=== PATIENT | female | born 1970 | race American Indian/Alaskan Native ===

== ENCOUNTER 2016-09-29 22:37 | Emergency (ER) | payer MEDICAID ==
[2016-09-30 01:05] VITALS: BP 122/88
[2016-09-30 02:03] LABS: Urine Drugs of Abuse Note Disclamer
[2016-09-30 02:34] LABS: Bacteria,Urine 1+ /HPF (Negative); Bilirubin,Urine NEG (Negative); Blood,Urine NEG (Negative); Ketones,Urine NEG (Negative); Leukocyte Esterase,Urine NEG (Negative); Mucus,Urine FEW /HPF; Nitrite,Urine NEG (Negative)
== END 2016-09-30 03:54 | disposition left against medical advice (07) ==
LOC: ED 22:37
DX: Z53.21 Procedure and treatment not carried out due to patient leaving prior to being seen by health care provider (principal)
CPT/HCPCS: 80307; 81001; 81025

== ENCOUNTER 2021-04-26 19:41 | Observation (INO) | payer MEDICAID, OTHER ==
[2021-04-26] MEDS ORDERED: ASPIRIN 81 MG TAB CHEW PO ONE (20:54)
--- NOTE | 2021-04-26 20:57 | Event Note ---
ED Screening Note ED Screening Note: MID STERNAL SHARP CP RAD LEFT SHOULDER (DULL) NO N/V; DIAPHORESIS; FEVER/CHILLS; ABD PAIN; BACK PAIN; DYSURIA; VAG DC PAIN NOT LIKE HER GERD ALSO CO RLE PAIN AND TOE NUMBNESS FOR 3 DAYS PMH GERD RX PPI PSH HYSTERECTOMY CSEC G STONES MOM DEC HF DAD DEC KIDNEY FAILURE NO CIG/ETOH/DRUGS This initial assessment/diagnostic orders/clinical plan/treatment(s) is/are subject to change based on patients health status, clinical progression and re- assessment by fellow clinical providers in the ED. Further treatment and workup at subsequent clinical providers discretion. Patient/guardian urged not to elope from the ED as their condition may be serious if not clinically assessed and managed. Initial orders include: RO ACS/PE/DVT/URI
[2021-04-26 21:20] LABS: Basophils # (Auto) 0.1 K/mm3 (0.0-0.1); Basophils % (Auto) 0.6 % (0.0-1.8); Eosinophils # (Auto) 0.1 K/mm3 (0.0-0.4); Eosinophils % (Auto) 0.8 % (0.0-4.3); Hemoglobin 13.2 gm/dl (10.1-14.3); Lymphocytes # (Auto) 3.9 K/mm3 (1.2-5.4); Lymphocytes % (Auto) 36.4 % (13.4-35.0); Mean Corpuscular HGB Conc 35 % (30-34); Mean Corpuscular Volume 93 fl (79-97); Monocytes # (Auto) 0.5 K/mm3 (0.0-0.8); Monocytes % (Auto) 4.9 % (0.0-7.3); Platelet Count 213 K/mm3 (140-440); Red Blood Count 4.07 M/mm3 (3.65-5.03); Red Cell Distribution Width 14.1 % (13.2-15.2)
[2021-04-26 21:31] LABS: INR 0.78 (0.87-1.13)
[2021-04-26 21:32] LABS: Partial Thromboplastin Time 28.5 Sec. (24.2-36.6)
[2021-04-26 21:33] LABS: Alanine Aminotransferase 12 units/L (7-56); Albumin 4.3 g/dL (3.9-5); Blood Urea Nitrogen 7 mg/dL (7-17); Calcium 9.9 mg/dL (8.4-10.2); Hemolysis Index 25
--- NOTE | 2021-04-26 21:47 | Emergency Department Report ---
HPI - General Chief Complaint: Chest Pain Time Seen by Provider: 04/26/21 20:54 - HPI HPI: Room 44 The patient is a 51-year-old female present with a chief complaint of chest pain. Patient states for 1 week she has had constant left-sided chest pain has been sharp in nature. Patient denies shortness of breath, nausea/vomiting or diaphoresis with her pain. Patient states for the past 3 days she has had pain behind her right calf and numbness in the toes of her right foot. The patient denies trauma preceding her right lower extremity pain. Patient denies history of fever or cough. The patient states she has not received any vaccinations for COVID-19. The patient currently gives her chest pain a score of 2/10 and now states it is dull in nature. Patient states she never had a stress test or cardiac catheterization ED Past Medical Hx - Past Medical History Previous Medical History?: Yes Hx GERD: Yes Hx Psychiatric Treatment: Yes (anxiety) - Surgical History Past Surgical History?: Yes Additional Surgical History: hysterectomy 2013 - Family History Family history: no significant - Social History Smoking Status: Never Smoker Substance Use Type: None (Denies illicit drug) - Medications Home Medications: Home Medications Medication Instructions Recorded Confirmed Last Taken Type Fluconazole (Nf) [Diflucan] 150 mg PO ONCE #1 tablet 01/05/15 Unknown Rx Ibuprofen [Motrin] 600 mg PO Q8H PRN #40 tablet 01/05/15 Unknown Rx traMADoL [Ultram] 50 mg PO Q6HR PRN #20 tablet 01/05/15 Unknown Rx ED Review of Systems ROS: Stated complaint: CHEST PAIN X1 WEEK, LEG PAIN AND TINGLING IN TOES Other details as noted in HPI Constitutional: denies: diaphoresis, fever Eyes: denies: eye pain ENT: denies: throat pain Respiratory: denies: cough, shortness of breath Cardiovascular: chest pain Endocrine: no symptoms reported Gastrointestinal: denies: nausea, vomiting Genitourinary: denies: dysuria Musculoskeletal: myalgia Neurological: paresthesias Physical Exam - Physical Exam Vital Signs: Vital Signs 04/26/21 20:31 Temperature 99.4 F Pulse Rate 82 Respiratory 18 Rate Blood Pressure 165/90 O2 Sat by Pulse 99 Oximetry Physical Exam: GENERAL: The patient is well-developed well-nourished female sitting in chair not appearing to be in acute distress HEENT: Normocephalic. Atraumatic. Extraocular motions are intact. Patient has moist mucous membranes. NECK: Supple. Trachea midline CHEST/LUNGS: Clear to auscultation. There is no respiratory distress noted. HEART/CARDIOVASCULAR: Regular. There is no tachycardia. There is no gallop rub or murmur. 2+ right DP ABDOMEN: Abdomen is soft, nontender. Patient has normal bowel sounds. There is no abdominal distention. SKIN: There is no rash. There is no edema. There is no diaphoresis. NEURO: The patient is awake, alert, and oriented. The patient is cooperative. The patient has no focal neurologic deficits. The patient has normal speech. GCS 15 MUSCULOSKELETAL: There is tenderness of the right calf. No cords palpated. T here is no evidence of acute injury. ED Course Vital Signs 04/26/21 20:31 Temperature 99.4 F Pulse Rate 82 Respiratory 18 Rate Blood Pressure 165/90 O2 Sat by Pulse 99 Oximetry ED Medical Decision Making - Lab Data Result diagrams: 04/26/21 20:57 04/26/21 20:57 Laboratory Tests 04/26/21 04/26/21 04/26/21 20:57 20:57 20:57 WBC 10.7 RBC 4.07 Hgb 13.2 Hct 38.0 MCV 93 MCH 32 MCHC 35 H RDW 14.1 Plt Count 213 Lymph % (Auto) 36.4 H [place] % (Auto) 4.9 Eos % (Auto) 0.8 Baso % (Auto) 0.6 Lymph # (Auto) 3.9 [place] # (Auto) 0.5 Eos # (Auto) 0.1 Baso # (Auto) 0.1 Seg Neutrophils % 57.3 Seg Neutrophils # 6.1 PT 11.5 L INR 0.78 L APTT 28.5 D-Dimer Sodium 137 Potassium 3.6 Chloride 101.4 Carbon Dioxide 23 Anion Gap 16 BUN 7 Creatinine 0.6 Estimated GFR > 60 BUN/Creatinine Ratio 12 Glucose 106 H Calcium 9.9 Total Bilirubin 0.20 AST 14 ALT 12 Alkaline Phosphatase 80 Troponin T < 0.010 Total Protein 8.1 Albumin 4.3 Albumin/Globulin Ratio 1.1 04/26/21 20:57 WBC RBC Hgb Hct MCV MCH MCHC RDW Plt Count Lymph % (Auto) [place] % (Auto) Eos % (Auto) Baso % (Auto) Lymph # (Auto) [place] # (Auto) Eos # (Auto) Baso # (Auto) Seg Neutrophils % Seg Neutrophils # PT INR APTT D-Dimer 181.22 Sodium Potassium Chloride Carbon Dioxide Anion Gap BUN Creatinine Estimated GFR BUN/Creatinine Ratio Glucose Calcium Total Bilirubin AST ALT Alkaline Phosphatase Troponin T Total Protein Albumin Albumin/Globulin Ratio - EKG Data -: EKG Interpreted by Me EKG shows normal: sinus rhythm Rate: normal - EKG Data When compared to previous EKG there are: previous EKG unavailable Interpretation: nonspecific ST-T wave magno (T wave inversions in leads V2, V3) - Radiology Data Radiology results: report reviewed (Chest x-ray, right lower extremity Doppler), image reviewed (Chest x-ray, right lower extremity Doppler) interpreted by me: Chest x-ray-no definite focal infiltrates, no pneumothorax [address] [address] Vascular Lab Report Signed Patient: MARLENE TIPTON MR#: [id number] 1 : 1970 Acct:[id number] Age/Sex: 51 / F ADM Date: 04/26/21 Loc: ED Attending Dr: Ordering Physician: TAYLOR ADKINS MD Date of Service: 04/26/21 Procedure(s): VL venous duplex LE RT Accession Number(s): [id number] cc: TAYLOR ADKINS MD DUPLEX DOPPLER LOWER EXTREMITY VEINS, RIGHT INDICATION / CLINICAL INFORMATION: Pain. TECHNIQUE: Duplex doppler imaging was performed through the veins of the right lower extremity using venous compression and other maneuvers. COMPARISON: None available. FINDINGS: RIGHT COMMON FEMORAL VEIN: Negative. R IGHT FEMORAL VEIN: Negative. RIGHT POPLITEAL VEIN: Negative. RIGHT CALF VEINS: Negative. ADDITIONAL FINDINGS: None. IMPRESSION: 1. No sonographic evidence for DVT in the right lower extremity. Signer Name: Tayo Barrett MD Signed: 04/26/2021 10:30 PM Workstation Name: [id number] Transcribed By: TL Dictated By: Tayo Barrett MD Electronically Authenticated By: Tayo Barrett MD Signed Date/Time: 04/26/212229 DD/ 28 TD/TT: Print Cancel [address] [address] XRay Report Signed Patient: MARLENE TIPTON MR#: [id number] 1 : 1970 Acct:[id number] Age/Sex: 51 / F ADM Date: 04/26/21 Loc: ED Attending Dr: Ordering Physician: RADHA DIGGS Date of Service: 04/26/21 Procedure(s): XR chest routine 2V Accession Number(s): [id number] cc: RADHA DIGGS Fluoro Time In Minutes: CHEST 2 VIEWS INDICATION / CLINICAL INFORMATION: Chest Pain STUDY TIME: 2108 COMPARISON: None currently available. FINDINGS: SUPPORT DEVICES: None. HEART / MEDIASTINUM: No significant abnormality. LUNGS / PLEURA: No significant acute pulmonary or pleural abnormality. No pneumothorax. ADDITIONAL FINDINGS: No significant additional findings. Signer Name: Anish Moore MD Signed: 04/26/2021 10:01 PM Workstation Name: [id number] Transcribed By: GJ Dictated By: Anish Moore MD Electronically Authenticated By: Anish oMore MD Signed Date/Time: 04/26/212200 DD/ 00 TD/TT: Print Cancel - Differential Diagnosis ACS, PE, pericarditis, GERD Critical care attestation.: If time is entered above; I have spent that time in minutes in the direct care of this critically ill patient, excluding procedure time. ED Disposition Clinical Impression: Chest pain Disposition: ADMITTED INPATIENT Is pt being admited?: Yes Does the pt Need Aspirin: Yes Condition: Fair Instructions: Nonspecific Chest Pain, Adult Referrals: PRIMARY CARE, [Primary Care Provider] - 3-5 Days Time of Disposition: 22:39 (Hospitalist called (Ayla Urrutia)) Heart Score - HEART Score History: Moderately suspicious EKG: Non-specific Age: 45-65 Risk factors: 1-2 risk factors Troponin: < normal limit HEART Score: 4 - EKG Read Time Time EKG Completed: 22:20 EKG Read Time: 22:22
[2021-04-26 22:02] LABS: BUN/Creatinine Ratio 12
--- NOTE | 2021-04-26 22:06 | XRay Report ---
CHEST 2 VIEWS INDICATION / CLINICAL INFORMATION: Chest Pain STUDY TIME: 2108 COMPARISON: None currently available. FINDINGS: SUPPORT DEVICES: None. HEART / MEDIASTINUM: No significant abnormality. LUNGS / PLEURA: No significant acute pulmonary or pleural abnormality. No pneumothorax. ADDITIONAL FINDINGS: No significant additional findings. Signer Name: Anish Moore MD Signed: 04/26/2021 10:01 PM Workstation Name: [id number]
[2021-04-26] MEDS ORDERED: fentaNYL 100 MCG/2 ML INJ IM ONE (22:15)
--- NOTE | 2021-04-26 22:34 | Vascular Lab Report ---
DUPLEX DOPPLER LOWER EXTREMITY VEINS, RIGHT INDICATION / CLINICAL INFORMATION: Pain. TECHNIQUE: Duplex doppler imaging was performed through the veins of the right lower extremity using venous comp ression and other maneuvers. COMPARISON: None available. FINDINGS: RIGHT COMMON FEMORAL VEIN: Negative. RIGHT FEMORAL VEIN: Negative. RIGHT POPLITEAL VEIN: Negative. RIGHT CALF VEINS: Negative. ADDITIONAL FINDINGS: None. IMPRESSION: 1. No sonographic evidence for DVT in the right lower extremity. Signer Name: Tayo Barrett MD Signed: 04/26/2021 10:30 PM Workstation Name: [id number]
[2021-04-26] MEDS: fentaNYL 100 MCG/2 ML INJ IV ONE ×2 (22:41→22:44)
[2021-04-26] MEDS: ONDANSETRON 4 MG/2 ML INJ IV ONE ×2 (22:41→22:44)
[2021-04-26] MEDS ORDERED: MORPHINE 2 MG/1 ML INJ IV PRN (22:45)
[2021-04-26] MEDS ORDERED: ONDANSETRON 4 MG/2 ML INJ IV PRN (22:45)
[2021-04-26] MEDS ORDERED: MORPHINE 4 MG/1 ML INJ IV PRN (22:45)
[2021-04-26] MEDS ORDERED: ACETAMINOPHEN 325 MG TAB PO PRN (22:45)
[2021-04-26] MEDS ORDERED: NITROGLYCERIN 0.4 MG TAB SUBL SL PRN (22:45)
[2021-04-26 22:47] LABS: Bilirubin,Urine NEG (Negative); Blood,Urine NEG (Negative); Color,Urine Yellow (Yellow); Protein,Urine <15 mg/dL mg/dL (Negative); Urobilinogen,Urine < 2.0 mg/dL (<2.0)
[2021-04-26] MEDS ORDERED: LORazepam 2 MG/ML VIAL IV PRN (22:55)
--- NOTE | 2021-04-27 00:22 | History and Physical Report ---
History of Present Illness Date of examination: 04/26/21 Date of admission: 04/26/2021 Chief complaint: chest pain, right calf pain History of present illness: 51-year-old -[place] female with history of hypertension, GERD, and anxiety who presents [facility] ED with complaints of chest pain and right calf pain. Patient reports constant 5/10 sharp left-sided chest pain with radiation to abdomen x1 week. States that she initially thought her GERD was acting up since she had been off meds for approximately 2 months, so she resumed PPI for 2 weeks with minimal relief. Denies nausea, vomiting, diaphoresis, palpitations or shortness of breath. Additionally she complains of right calf pain and numbness to right foot x3 days. Denies any recent fall, injury/trauma to lower extremity. Reports that she did not receive any vaccination for COVID-19. Review of medical record shows patient was seen in ED with complaints of right foot pain in 2015. Patient states she was told that her pain was due to arthritis and was given pain meds to treat. Denies fever, chills, cough, hemoptysis, loss of smell and taste, illicit drug use, or recent sick contacts Past History Past Medical History: GERD, hypertension, other (anxiety ) Past Surgical History: hysterectomy (2013) Social history: lives with family (Children and boyfriend), full code. denies: smoking, alcohol abuse, prescription drug abuse, IV drug use Family history: CAD (Mother), hypertension Medications and Allergies Allergies Allergy/AdvReac Type Severity Reaction Status Date / Time doxycycline Allergy Unknown Verified 04/26/21 20:39 Home Medications Medication Instructions Recorded Confirmed Last Taken Type Fluconazole (Nf) [Diflucan] 150 mg PO ONCE #1 tablet 01/05/15 Unknown Rx Ibuprofen [Motrin] 600 mg PO Q8H PRN #40 tablet 01/05/15 Unknown Rx traMADoL [Ultram] 50 mg PO Q6HR PRN #20 tablet 01/05/15 Unknown Rx Active Meds: Active Medications Acetaminophen (Acetaminophen 325 Mg Tab) 650 mg PO Q6H PRN PRN Reason: Pain, Mild (1-3) Aspirin (Aspirin Ec 325 Mg Tab) 325 mg PO QDAY NELLY Atorvastatin Calcium (Atorvastatin 40 Mg Tab) 40 mg PO QHS NELLY Heparin Sodium (Porcine) (Heparin 5,000 Unit/1 Ml Vial) 5,000 unit SUB-Q Q12HR NELLY Lorazepam (Lorazepam 2 Mg/Ml Vial) 0.5 mg IV Q8H PRN PRN Reason: Anxiety Morphine Sulfate (Morphine 4 Mg/1 Ml Inj) 2 mg IV Q5MIN PRN PRN Reason: Chest Pain unrelieved by NTG Morphine Sulfate (Morphine 2 Mg/1 Ml Inj) 2 mg IV Q4H PRN PRN Reason: Pain, Moderate (4-6) Nitroglycerin (Nitroglycerin 0.4 Mg Tab Subl) 0.4 mg SL Q5M PRN PRN Reason: Chest Pain Ondansetron HCl (Ondansetron 4 Mg/2 Ml Inj) 4 mg IV Q6H PRN PRN Reason: Nausea And Vomiting Pantoprazole Sodium (Pantoprazole 40 Mg Inj) 40 mg IV QDAY [facility] Sodium Chloride (Sodium Chloride 0.9% 10 Ml Flush Syringe) 10 ml IV PRN PRN PRN Reason: LINE FLUSH Sodium Chloride (Sodium Chloride 0.9% 10 Ml Flush Syringe) 10 ml IV BID NELLY Review of Systems All systems: negative (As noted in HPI) Exam - Physical Exam Narrative exam: Physical exam General appearance: Present: No acute distress, alert and oriented 3, adult female - EENT Eyes: Present: PERRL, EOM intact ENT: hearing intact, normal dentition - Neck Neck: Present: supple, normal ROM - Respiratory Respiratory effort: Non-labored Respiratory: Clear throughout - Cardiovascular Heart rate: 78 (bpm) Rhythm: Sinus nonspecific T wave abnormalities Heart Sounds: Present: S1 & S2. Absent: rub, click - Extremities Extremities: no ischemia, pulses intact, - Peripheral Assessment Peripheral Pulses: within normal limits - Abdominal General gastrointestinal: Obese, soft, non-tender, normal bowel sounds - Integumentary Integumentary: Present: warm, dry - Musculoskeletal Musculoskeletal: Able to move all extremities -Neurological Neurological: CN II-XII intact - Psychiatric Psychiatric: cooperative - Constitutional Vitals: Temp Pulse Resp BP Pulse Ox 99.4 F 82 18 165/90 99 04/26/21 20:31 04/26/21 20:31 04/26/21 20:31 04/26/21 20:31 04/26/21 20:31 HEART Score - HEART Score EKG: Non-specific Age: 45-65 Risk factors: 1-2 risk factors Troponin: WBC 10.7 K/mm3 (4.5-11.0) 04/26/21 20:57 RBC 4.07 M/mm3 (3.65-5.03) 04/26/21 20:57 Hgb 13.2 gm/dl (10.1-14.3) 04/26/21 20:57 Hct 38.0 % (30.3-42.9) 04/26/21 20:57 MCV 93 fl (79-97) 04/26/21 20:57 MCH 32 pg (28-32) 04/26/21 20:57 MCHC 35 % (30-34) H 04/26/21 20:57 RDW 14.1 % (13.2-15.2) 04/26/21 20:57 Plt Count 213 K/mm3 (140-440) 04/26/21 20:57 Lymph % (Auto) 36.4 % (13.4-35.0) H 04/26/21 20:57 [place] % (Auto) 4.9 % (0.0-7.3) 04/26/21 20:57 Eos % (Auto) 0.8 % (0.0-4.3) 04/26/21 20:57 Baso % (Auto) 0.6 % (0.0-1.8) 04/26/21 20:57 Lymph # (Auto) 3.9 K/mm3 (1.2-5.4) 04/26/21 20:57 [place] # (Auto) 0.5 K/mm3 (0.0-0.8) 04/26/21 20:57 Eos # (Auto) 0.1 K/mm3 (0.0-0.4) 04/26/21 20:57 Baso # (Auto) 0.1 K/mm3 (0.0-0.1) 04/26/21 20:57 Seg Neutrophils % 57.3 % (40.0-70.0) 04/26/21 20:57 Seg Neutrophils # 6.1 K/mm3 (1.8-7.7) 04/26/21 20:57 PT 11.5 Sec. (12.2-14.9) L 04/26/21 20:57 INR 0.78 (0.87-1.13) L 04/26/21 20:57 APTT 28.5 Sec. (24.2-36.6) 04/26/21 20:57 D-Dimer 181.22 ng/mlDDU (0-234) 04/26/21 20:57 Sodium 137 mmol/L (137-145) 04/26/21 20:57 Potassium 3.6 mmol/L (3.6-5.0) 04/26/21 20:57 Chloride 101.4 mmol/L (98-107) 04/26/21 20:57 Carbon Dioxide 23 mmol/L (22-30) 04/26/21 20:57 Anion Gap 16 mmol/L 04/26/21 20:57 BUN 7 mg/dL (7-17) 04/26/21 20:57 Creatinine 0.6 mg/dL (0.6-1.2) 04/26/21 20:57 Estimated GFR > 60 ml/min 04/26/21 20:57 BUN/Creatinine Ratio 12 % 04/26/21 20:57 Glucose 106 mg/dL (65-100) H 04/26/21 20:57 Calcium 9.9 mg/dL (8.4-10.2) 04/26/21 20:57 Total Bilirubin 0.20 mg/dL (0.1-1.2) 04/26/21 20:57 AST 14 units/L (5-40) 04/26/21 20:57 ALT 12 units/L (7-56) 04/26/21 20:57 Alkaline Phosphatase 80 units/L (35-129) 04/26/21 20:57 Troponin T < 0.010 ng/mL (0.00-0.029) 04/26/21 20:57 Total Protein 8.1 g/dL (6.3-8.2) 04/26/21 20:57 Albumin 4.3 g/dL (3.9-5) 04/26/21 20:57 Albumin/Globulin Ratio 1.1 % 04/26/21 20:57 Troponin: < normal limit Results - Labs CBC & Chem 7: 04/26/21 20:57 04/26/21 20:57 Labs: Laboratory Last Values WBC 10.7 K/mm3 (4.5-11.0) 04/26/21 20:57 RBC 4.07 M/mm3 (3.65-5.03) 04/26/21 20:57 Hgb 13.2 gm/dl (10.1-14.3) 04/26/21 20:57 Hct 38.0 % (30.3-42.9) 04/26/21 20:57 MCV 93 fl (79-97) 04/26/21 20:57 MCH 32 pg (28-32) 04/26/21 20:57 MCHC 35 % (30-34) H 04/26/21 20:57 RDW 14.1 % (13.2-15.2) 04/26/21 20:57 Plt Count 213 K/mm3 (140-440) 04/26/21 20:57 Lymph % (Auto) 36.4 % (13.4-35.0) H 04/26/21 20:57 [place] % (Auto) 4.9 % (0.0-7.3) 04/26/21 20:57 Eos % (Auto) 0.8 % (0.0-4.3) 04/26/21 20:57 Baso % (Auto) 0.6 % (0.0-1.8) 04/26/21 20:57 Lymph # (Auto) 3.9 K/mm3 (1.2-5.4) 04/26/21 20:57 [place] # (Auto) 0.5 K/mm3 (0.0-0.8) 04/26/21 20:57 Eos # (Auto) 0.1 K/mm3 (0.0-0.4) 04/26/21 20:57 Baso # (Auto) 0.1 K/mm3 (0.0-0.1) 04/26/21 20:57 Seg Neutrophils % 57.3 % (40.0-70.0) 04/26/21 20:57 Seg Neutrophils # 6.1 K/mm3 (1.8-7.7) 04/26/21 20:57 PT 11.5 Sec. (12.2-14.9) L 04/26/21 20:57 INR 0.78 (0.87-1.13) L 04/26/21 20:57 APTT 28.5 Sec. (24.2-36.6) 04/26/21 20:57 D-Dimer 181.22 ng/mlDDU (0-234) 04/26/21 20:57 Sodium 137 mmol/L (137-145) 04/26/21 20:57 Potassium 3.6 mmol/L (3.6-5.0) 04/26/21 20:57 Chloride 101.4 mmol/L (98-107) 04/26/21 20:57 Carbon Dioxide 23 mmol/L (22-30) 04/26/21 20:57 Anion Gap 16 mmol/L 04/26/21 20:57 BUN 7 mg/dL (7-17) 04/26/21 20:57 Creatinine 0.6 mg/dL (0.6-1.2) 04/26/21 20:57 Estimated GFR > 60 ml/min 04/26/21 20:57 BUN/Creatinine Ratio 12 % 04/26/21 20:57 Glucose 106 mg/dL (65-100) H 04/26/21 20:57 Calcium 9.9 mg/dL (8.4-10.2) 04/26/21 20:57 Total Bilirubin 0.20 mg/dL (0.1-1.2) 04/26/21 20:57 AST 14 units/L (5-40) 04/26/21 20:57 ALT 12 units/L (7-56) 04/26/21 20:57 Alkaline Phosphatase 80 units/L (35-129) 04/26/21 20:57 Troponin T < 0.010 ng/mL (0.00-0.029) 04/26/21 20:57 Total Protein 8.1 g/dL (6.3-8.2) 04/26/21 20:57 Albumin 4.3 g/dL (3.9-5) 04/26/21 20:57 Albumin/Globulin Ratio 1.1 % 04/26/21 20:57 Urine Color Yellow (Yellow) 04/26/21 22:39 Urine Turbidity Slightly-cloudy (Clear) 04/26/21 22:39 Urine pH 6.0 (5.0-7.0) 04/26/21 22:39 Ur Specific [place] 1.010 (1.003-1.030) 04/26/21 22:39 Urine Protein <15 mg/dl mg/dL (Negative) 04/26/21 22:39 Urine Glucose (UA) Neg mg/dL (Negative) 04/26/21 22:39 Urine Ketones Neg mg/dL (Negative) 04/26/21 22:39 Urine Blood Neg (Negative) 04/26/21 22:39 Urine Nitrite Neg (Negative) 04/26/21 22:39 Urine Bilirubin Neg (Negative) 04/26/21 22:39 Urine Urobilinogen < 2.0 mg/dL (<2.0) 04/26/21 22:39 Ur Leukocyte Esterase Neg (Negative) 04/26/21 22:39 Urine WBC (Auto) 2.0 /HPF (0.0-6.0) 04/26/21 22:39 Urine RBC (Auto) 1.0 /HPF (0.0-6.0) 04/26/21 22:39 U Epithel Cells (Auto) 6.0 /HPF (0-13.0) 04/26/21 22:39 - Imaging and Cardiology Imaging and Cardiology: CXR: FINDINGS: SUPPORT DEVICES: None. HEART / MEDIASTINUM: No significant abnormality. LUNGS / PLEURA: No significant acute pulmonary or pleural abnormality. No pneumothorax. ADDITIONAL FINDINGS: No significant additional findings. RLE Doppler: FINDINGS: RIGHT COMMON FEMORAL VEIN: Negative. RIGHT FEMORAL VEIN: Negative. RIGHT POPLITEAL VEIN: Negative. RIGHT CALF VEINS: Negative. ADDITIONAL FINDINGS: None. IMPRESSION: 1. No sonographic evidence for DVT in the right lower extremity. Assessment and Plan Assessment and plan: Acute Chest Pain -Initiate chest pain protocol -Continuous telemetry monitoring -Continue supportive care -Pain mgmt -Start ASA and low-dose BB -Troponin negative x1 , will continue to trend -EKG shows sinus rhythm with nonspecific T wave abnormalities, unrevealing for acute ischemic abnormalities -Echo and Padmini scan pending Right calf pain -Complains of pain behind right calf and numbness to right foot -Right lower extremity Doppler negative -Review of medical record shows pt has hx chronic right calf pain may benefit from o/p follow-up with pain management and or musculoskeletal neurologist -Supportive care HTN -Monitor BP -Started on low-dose BB GERD -On Protonix History of anxiety -Ativan as needed DVT PPX -on Heparin Advance Directives: No VTE prophylaxis?: Chemical, Mechanical Plan of care discussed with patient/family: Yes
[2021-04-27 00:33] VITALS: BP 151/85
[2021-04-27] MEDS ORDERED: HEPARIN 5,000 UNIT/1 ML VIAL SUB-Q SCH (10:00)
[2021-04-27] MEDS ORDERED: ASPIRIN EC 325 MG TAB PO SCH (10:00)
[2021-04-27] MEDS ORDERED: PANTOPRAZOLE 40 MG INJ IV SCH (10:00)
[2021-04-27] MEDS ORDERED: carvediloL 3.125 MG TAB PO SCH (10:00)
--- NOTE | 2021-04-27 10:44 | Electrocardiograph Report ---
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
== END 2021-04-27 00:10 | disposition left against medical advice (07) ==
LOC: ED 19:41 → 4A 22:41
PROVIDERS: ADMIT Internal Medicine Geriatric Medicine; ATTEND Internal Medicine Geriatric Medicine
DX: R07.89 Other chest pain (principal); I10 Essential (primary) hypertension; K21.9 Gastro-esophageal reflux disease without esophagitis; F41.9 Anxiety disorder, unspecified; M79.604 Pain in right leg; Z90.710 Acquired absence of both cervix and uterus; Z98.891 History of uterine scar from previous surgery; Z98.890 Other specified postprocedural states
CPT/HCPCS: 36415; 71046; 80053; 81001; 84484; 85025; 85379; 85610; 85730; 93005; 93971; 96372; 99285; G0378; J2405; J3010